=== PATIENT | female | born 1955 | race Caucasian/White ===

== ENCOUNTER 2018-07-13 09:44 | Emergency (ER) | payer MEDICAID ==
[~2018-07-13] VITALS: Ht 154.9 cm; Wt 63.0 kg
[2018-07-13 09:48] VITALS: BP 171/83
--- NOTE | 2018-07-13 09:55 | NUR ---
PT TO ER BED 02
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
[2018-07-13] MEDS ORDERED: KETOROLAC 60 MG/2 ML VIAL IM ONE (10:40)
[2018-07-13 12:09] VITALS: BP 153/76
== END 2018-07-13 12:19 | disposition home or self-care (01) ==
LOC: MED 09:44
DX: S22.22XA Fracture of body of sternum, initial encounter for closed fracture (principal); S13.4XXA Sprain of ligaments of cervical spine, initial encounter; Z88.0 Allergy status to penicillin; V89.2XXA Person injured in unspecified motor-vehicle accident, traffic, initial encounter; Y93.89 Activity, other specified; Y92.410 Unspecified street and highway as the place of occurrence of the external cause; Y99.8 Other external cause status
CPT/HCPCS: 71045; 71250; 72125; 74176; 81025; 96372; 99284; J1885

== ENCOUNTER 2021-10-08 10:13 | Emergency (ER) | payer MEDICARE, MEDICAID ==
[~2021-10-08] VITALS: Ht 154.9 cm; Wt 63.5 kg
[2021-10-08 10:17] VITALS: BP 141/93
--- NOTE | 2021-10-08 10:21 | NUR ---
AMBULATED TO BED 2
--- NOTE | 2021-10-08 10:59 | NUR ---
66 y/o female bib self with c/o possible allergic reaction. Patient has 2 bumps, hairloss and pain to top of head. Patients bumps are red and swollen. Per patient she was told it was a fungal infection and given Ketoconazole shampoo. Original bumps went away in August and came back last week and now they are painful and were draining last night. Patient has a small amount of swelling to eyelids. Denies SOB, fever or chills. Medical History: HLD, HTN, Thyroid ALLERGY: PENICILLIN
--- NOTE | 2021-10-08 11:08 | NUR ---
Dr. Titus evaluating patient at bedside.
[2021-10-08] MEDS ORDERED: IBUP-2213 PO (11:27)
[2021-10-08] MEDS ORDERED: DIPH25TA53 PO (11:27)
[2021-10-08] MEDS ORDERED: PRED20TA5 PO (11:27)
--- NOTE | 2021-10-08 11:35 | NUR ---
Patient discharged with v/s stable. Written and verbal after care instructions ABOUT RASH given and explained. Patient alert, oriented and verbalized understanding of instructions. Ambulatory with steady gait. All questions addressed prior to discharge. ID band removed. Patient advised to follow up with PMD. Rx of BENADYRL, IBUPROFEN, AND PREDNISONE given. Patient educated on indication of medication including possible reaction and side effects. Opportunity to ask questions provided and answered.
--- NOTE | 2021-10-08 11:36 | NUR ---
The patient's care was reviewed and supervised by Heidi Mccauley RN.
== END 2021-10-08 11:35 | disposition home or self-care (01) ==
LOC: MED 10:13
DX: R21 Rash and other nonspecific skin eruption (principal); I10 Essential (primary) hypertension; E03.9 Hypothyroidism, unspecified; Z88.0 Allergy status to penicillin; Z90.89 Acquired absence of other organs
CPT/HCPCS: 99283